=== PATIENT | female | born 1995 | race Native Hawaiian/Other Pacific Islander ===

== ENCOUNTER 2020-10-08 11:23 | Outpatient (CLI) | payer BC ==
[2020-10-08 12:17] LABS: PLATELET COUNT 401 K/uL (152-353)
[2020-10-08 12:44] LABS: POTASSIUM 4.1 mmol/L (3.6-5.2)
== END 2020-10-08 19:56 | disposition home or self-care (01) ==
LOC: US 11:23
PROVIDERS: ATTEND Student in an Organized Health Care Education/Training Program
DX: R10.11 Right upper quadrant pain (principal)
CPT/HCPCS: 36415; 80053; 81025; 85027

== ENCOUNTER 2023-12-03 02:39 | Emergency (ER) | payer BC ==
[~2023-12-03] VITALS: Ht 172.7 cm; Wt 122.5 kg
[2023-12-03] MEDS ORDERED: DIPHENHYDRAMINE HCL 50 MG INJ IM ONE (03:01)
[2023-12-03] MEDS ORDERED: METHYLPREDNISOLONE SOD SUCC 125 MG ML IM ONE (03:05)
== END 2023-12-03 04:10 | disposition home or self-care (01) ==
LOC: ED 02:39
DX: R21 Rash and other nonspecific skin eruption (principal); L23.9 Allergic contact dermatitis, unspecified cause
CPT/HCPCS: 96372; 99282; J1200; J2930